=== PATIENT | female | born 1960 | race Native Hawaiian/Other Pacific Islander ===

== ENCOUNTER 2016-09-10 08:27 | Outpatient (CLI) | payer OTHER ==
[2016-09-10 08:42] LABS: PLATELET COUNT 270 K/uL (152-353)
[2016-09-10 08:55] LABS: POTASSIUM 3.7 mmol/L (3.6-5.2)
== END 2016-09-10 09:45 | disposition home or self-care (01) ==
LOC: CT 08:27
PROVIDERS: Specialist
DX: R10.84 Generalized abdominal pain (principal); R11.0 Nausea; Z98.890 Other specified postprocedural states; Z90.49 Acquired absence of other specified parts of digestive tract
CPT/HCPCS: 36415; 80053; 82150; 83690; 85027; 86318; Q9963

== ENCOUNTER 2020-05-07 13:35 | Outpatient (CLI) | payer OTHER | END 2020-05-07 20:53 | disposition home or self-care (01) | LOC: RAD 13:35 | PROVIDERS: ATTEND Physician Assistant | DX: M25.511 Pain in right shoulder (principal) ==

== ENCOUNTER 2020-06-18 10:41 | Outpatient (CLI) | payer OTHER | END 2020-06-18 19:21 | disposition home or self-care (01) | LOC: MRI 10:41 | PROVIDERS: ATTEND Physician Assistant | DX: M25.511 Pain in right shoulder (principal) ==